=== PATIENT | male | born 1975 | race Two or more races ===

== ENCOUNTER 2018-07-20 21:14 | Inpatient (IN) | payer OTHER ==
[~2018-07-20] VITALS: Ht 177.8 cm; Wt 86.2 kg
[~2018-07-20 21:14] MED LIST: PREVACID
[2018-07-20] MEDS ORDERED: NEXIUM2.5 MG (21:40)
[2018-07-21] MEDS ORDERED: PREVACID30 M1 (16:54)
[2018-07-24] MEDS ORDERED: CIPRO500 MG PO (15:04)
[2018-07-24] MEDS ORDERED: FLAGYL500MG PO (15:04)
== END 2018-07-24 16:04 | disposition home or self-care (01) | DRG 391 ==
LOC: ER 21:14 → MEDJ 07-21 08:46 → SEC-K 07-21 08:46 → MEDJ 07-21 14:04
PROVIDERS: ADMIT Internal Medicine
DX: K57.32 Diverticulitis of large intestine without perforation or abscess without bleeding (principal); A41.9 Sepsis, unspecified organism; K76.0 Fatty (change of) liver, not elsewhere classified; D72.828 Other elevated white blood cell count